=== PATIENT | female | born 1995 | race Hispanic/Latino ===

== ENCOUNTER 2018-07-21 21:18 | Emergency (ER) | payer OTHER ==
[2018-07-21 21:24] VITALS: BP 134/79
--- NOTE | 2018-07-21 22:22 | ED GENERAL ADULT ---
History of Present Illness General Chief Complaint: Laceration Procedure Stated Complaint: "I CUT MY FINGER" Source: patient Exam Limitations: no limitations Vital Signs & Intake/Output Vital Signs & Intake/Output Vital Signs Date Time Temp Pulse Resp B/P B/P Pulse O2 O2 Flow FiO2 Mean Ox Delivery Rate 07/21 2216 Room Air 07/21 2124 97.6 75 18 134/79 99 Room Air Allergies Coded Allergies: No Known Allergies (07/21/18) Triage Note: PT TO TRIAGE WITH LAC TO R 3RD AND 4TH HAND DIGIT S/P CUTTING IT WITH A KNIFE WHILE COOKING. BLEEDING CONTROLLED. LAST TETANUS 4 YEARS AGO PER PT. Triage Nurses Notes Reviewed? yes : No Patient currently breastfeeds: No HPI: 22-year-old woman with no significant past medical history seen after suffering a cut to her middle and second finger. Patient was reportedly cooking dinner tonight consisting of raw chicken when she cut the third and second fingers on her right hand. The area was immediately wrapped in a dirty kitchen towel due to profuse bleeding and the patient was brought to the [facility]. Presently the patient states that she feels well and admits only mild/moderate pain in her right hand. She reports that her tetanus shot is up-to-date. (Suresh Staples MD) Reconcile Medications Doxycycline Hyclate 100 MG CAPSULE 1 CAP PO BID LACERATION (Sushant RODRIGUEZ,Eleuterio Nieves) Past History Travel History Traveled to [place] past 21 day No Medical History Any Pertinent Medical History? see below for history Neurological: NONE EENT: NONE Cardiovascular: NONE Respiratory: NONE Gastrointestinal: GERD Hepatic: NONE Renal: NONE Musculoskeletal: NONE Psychiatric: NONE Endocrine: NONE Blood Disorders: NONE Cancer(s): NONE CONTACT LENS POLISHER/Reproductive: NONE Surgical History Surgical History: none Psychosocial History What is your primary language Bengali Tobacco Use: Never used ETOH Use: occasional use Family History Hx Contributory? No (Suresh Staples MD) Review of Systems Review of Systems Constitutional: Reports: see HPI. (Suresh Staples MD) Physical Exam Physical Exam General Appearance: well developed/nourished, no apparent distress, alert, awake , comfortable Comments: General - well developed, well nourished young woman in no acute distress HEENT - NCAT, PERRL, EOMI, anicteric sclera Neck- Supple, no JVD/HJR, no bruits, trachea midline Neuro-awake and alert, cranial nerves II through XII grossly intact Right hand-2 cm laceration to interphalangeal joint of third finger without any retained foreign body or debris, 1 cm laceration to distal second finger without any retained foreign body or debris, sensation and capillary refill intact Core Measures ACS in differential dx? No CVA/TIA Diagnosis: No Sepsis Present: No Sepsis Focused Exam Completed? No (Suresh Staples MD) Progress Differential Diagnoses I considered the following diagnoses in my evaluation of the patient: Laceration Plan of Care: As above Initial ED EKG: none Comments: Patient admits only to minor right hand pain, vital signs remain within normal limits. Physical examination demonstrates 2 lacerations to second and third fingers of right hand with active bleeding; sensation and capillary refill intact. Laceration repair was performed to both fingers and rigid finger splint applied. Patient is started on a 5 day course of oral antibiotics and discharged home with instruction to return to an ED in 10 days for wound check and suture removal. (Suresh Staples MD) Departure Departure Disposition: HOME OR SELF CARE Condition: Stable Clinical Impression Primary Impression: Laceration Referrals: Patient Has No Primary Care Dr (PCP/Family) Additional Instructions: Keep her finger and a rigid splint nicholas taped to your second finger for at least 3 days. Take your antibiotics as directed. Avoid sunlight when taking this medication and be sure to take this medicine with a large glass of water. Call 911 or return to the ED should he develop signs of infection or loss of function of the fingers. Return to an ED in 10 days for wound check and suture removal. Avoid reinjuring the area. Departure Forms: Customer Survey General Discharge Information Prescriptions: Current Visit Scripts Doxycycline Hyclate 1 CAP PO BID #10 CAP (Suresh Staples MD) Resident Co-Sign Statement Statement: ED Attending supervision documentation- [X] I saw and evaluated the patient. I have also reviewed all the pertinent lab results and diagnostic results. I agree with the findings and the plan of care as documented in the Resident's documentation. [X] I have reviewed the ED Record and agree with the Resident's documentation. [] Additions or exceptions (if any) to the Resident's note and plan are summarized below: [] (Sushant RODRIGUEZ,Eleuterio Nieves) Procedures Laceration/Wound Repair Laceration/Wound Repair: Wound Location: right hand Wound's Depth, Shape: linear Wound Length (cm): 2 Wound Explored: clean, no foreign body removed, irrigated extensively Irrigated w/ Saline (ccs): 200 Betadine Prep? Yes Anesthesia: 1% lidocaine Volume Anesthetic (ccs): 8 Wound Debrided: minimal Wound Repaired With: sutures Suture Size/Type: 5:0 Number of Sutures: 4 Layer Closure? No Sterile Dressing Applied: Yes Splint Applied? Yes By Who? by me Type of Splint Applied: rigid finger splint with nicholas tape (Bel RODRIGUEZ,Suresh) Critical Care Note Critical Care Note Critical Care Time: non-applicable (Suresh Staples MD)
[2018-07-21] MEDS ORDERED: DOXYCYCLINE HY100 M2 PO (23:19)
== END 2018-07-21 23:48 ==
LOC: ERH 21:18
DX: S61.210A Laceration without foreign body of right index finger without damage to nail, initial encounter (principal); S61.212A Laceration without foreign body of right middle finger without damage to nail, initial encounter; W26.0XXA Contact with knife, initial encounter; Y93.G1 Activity, food preparation and clean up; Y92.9 Unspecified place or not applicable
CPT/HCPCS: J2001